=== PATIENT | female | born 1950 | race African-American/Black ===

== ENCOUNTER 2017-06-12 08:02 | Day surgery (SDC) | payer MEDICARE, MEDICAID ==
[2017-06-11 09:23] VITALS: BMI 28.3
[2017-06-12 11:10] VITALS: BP 142/72; TEMP 97.4
--- NOTE | 2017-06-12 11:52 | ULT ---
THYROID FINE NEEDLE ASPIRATION: Date: 06/12/17 COMPARISON: Thyroid ultrasound dated 04/28/17. HISTORY: Recent thyroid ultrasound demonstrated two nodules which based on size criteria were recommended for needle biopsy. FINDINGS: Informed consent was obtained prior to the procedure. Preprocedural imaging reidentifies the two nodules in question. This includes a nodule within the thy roid isthmus just to the right of midline measuring up to 1.6-1.7 cm. In addition, there is a nodule in the inferomedial left lobe of the thyroid gland measuring up to 2.2 cm. This thyroid biopsy was technically quite difficult secondary to the patient's inability to breath-ho ld and persistent rapid deep breathing during this study, which results in marked motion of the thyro id gland and associated nodules. Secondary to these technical limitations, the lesion within the left lobe could not be biopsied as it is also completely encircled by vessels, including carotid artery i nternal jugular vein and external jugular vein. Thus, only the lesion within the thyroid isthmus coul d be safely sampled. Skin overlying this lesion was prepped and draped in the normal sterile fashion and anesthetized with 1% buffered lidocaine. With direct sonographic guidance, four 25 gauge fine needle aspirates were obtained and given to the pathology personnel at the bedside. Postprocedural imaging demonstrates no postprocedural hemorrhage. IMPRESSION: Markedly difficult thyroid biopsy technically secondary to location of nodules and persistent patient swallowing and breathing. The left nodule was not biopsied secondary to these limitations and adjace nt vasculature. The thyroid isthmus nodule was sampled. CODE T. POS: [facility]
== END 2017-06-12 11:00 | disposition home or self-care (01) ==
LOC: ULT 08:02
PROVIDERS: ATTEND Otolaryngology Plastic Surgery within the Head & Neck
DX: E05.10 Thyrotoxicosis with toxic single thyroid nodule without thyrotoxic crisis or storm (principal); J45.909 Unspecified asthma, uncomplicated; M19.90 Unspecified osteoarthritis, unspecified site; F17.210 Nicotine dependence, cigarettes, uncomplicated; Z79.899 Other long term (current) drug therapy; Z96.643 Presence of artificial hip joint, bilateral
CPT/HCPCS: 10022; 76942; 88173

== ENCOUNTER 2024-03-18 05:08 | Inpatient (IN) | payer OTHER, MEDICAID ==
[2024-03-18] MEDS ORDERED: methylPREDNISolone Sod Succ/PF 125 MG/2 ML VIAL ONE (05:20)
[2024-03-18] MEDS ORDERED: Ipratropium/Albuterol 3 ML NEB ONE ×2 (05:20→05:50)
[2024-03-18 05:43] LABS: #Basophils 0.03 10x3/uL (0.0-0.2); %Basophils 0.5 % (0.0-1.0); %Eosinophils 3.4 % (0.0-10.0); %Lymphocytes 41.8 % (21.0-51.0); %Monocytes 10.8 % (0.0-10.0); %Neutrophils 43.3 % (42.0-75.0); Hematocrit 37.9 % (36.0-47.0); Mean Corpuscular HGB CONC 31.7 g/dL (32.0-36.0); Mean Corpuscular Hemoglobin 27.1 pg (27.0-31.0); Mean Corpuscular Volume 85.6 fL (78.0-98.0); Mean Platelet Volume 9.1 fL (7.4-10.4); Platelet Count 261 10x3/uL (130-400); RBC Distribution Width 13.1 % (11.5-14.5); Red Blood Cell (RBC) Count 4.43 mill/uL (4.20-5.40)
[2024-03-18] MEDS ORDERED: Magnesium 2 GM/50 ML BAG (IN WATER) ONE (05:50)
[2024-03-18 06:05] LABS: Troponin I Less than 0.010 ng/mL (< 0.028)
[2024-03-18 06:29] LABS: ALT (SGPT) 7 U/L (8-55); AST (SGOT) 15 U/L (5-34); Albumin 3.2 g/dL (3.4-4.8); Alkaline Phosphatase 87 U/L (40-110); Anion Gap 15 mmol/L (10-20); BUN (Urea Nitrogen) 15 mg/dL (9.8-20.1); Bilirubin, Total 0.3 mg/dL (0.2-1.2); Calc. Creatinine Clearance 0 mL/min (70-130); Calcium 9.1 mg/dL (7.8-10.44); Carbon Dioxide 23 mmol/L (23-31); Chloride 109 mmol/L (98-107); Estimated GFR 75; Globulin 3.6 g/dL (2.4-3.5); Glucose 96 mg/dL (83-110); Potassium 3.1 mmol/L (3.5-5.1); Protein, Total 6.8 g/dL (5.8-8.1); Sodium 144 mmol/L (136-145)
[2024-03-18] MEDS ORDERED: Ondansetron PF 4 MG/2 ML Vial IVP PRN (09:32)
[2024-03-18] MEDS ORDERED: Ondansetron ODT 4 MG TAB PO PRN (09:32)
[2024-03-18] MEDS ORDERED: hydrALAZINE 20 MG/ML VIAL SLOW IVP PRN (09:32)
[2024-03-18 10:02] VITALS: BMI 28.0
[2024-03-18] MEDS: Famotidine 20 MG TAB PO SCH ×2 (10:26→21:45)
[2024-03-18] MEDS: cefTRIAXone\\ROCEPHIN 1 GM in Sodium Chloride 0.9% 100 ML IVPB SCH (10:27)
[2024-03-18] MEDS: Ipratropium/Albuterol 3 ML NEB NEB SCH (11:11)
[2024-03-18] MEDS: methylPREDNISolone Sod Succ 40 MG VIAL IVP SCH (12:23)
[2024-03-18] MEDS: FLU (Fluad Triv) TS24-25 (65UP)/MF59C/PF 45 MCG/0.5 ML Syringe IM ONE (17:55)
[2024-03-18] MEDS: Benzonatate 100 MG CAP PO PRN (21:44)
[2024-03-18] MEDS: Acetaminophen 500 MG TAB PO PRN (21:45)
[2024-03-19 04:07] LABS: #Basophils Less than 0.03 10x3/uL (0.0-0.2); #Eosinophils Less than 0.03 10x3/uL (0.0-0.7); %Lymphocytes 12.2 % (21.0-51.0); %Monocytes 3.4 % (0.0-10.0); %Neutrophils 84.2 % (42.0-75.0); Hematocrit 35.6 % (36.0-47.0); Hemoglobin 11.2 g/dL (12.0-16.0); Mean Corpuscular HGB CONC 31.5 g/dL (32.0-36.0); Mean Corpuscular Hemoglobin 26.9 pg (27.0-31.0); Mean Corpuscular Volume 85.6 fL (78.0-98.0); Mean Platelet Volume 9.4 fL (7.4-10.4); Platelet Count 267 10x3/uL (130-400); RBC Distribution Width 13.3 % (11.5-14.5); Red Blood Cell (RBC) Count 4.16 mill/uL (4.20-5.40)
[2024-03-19 04:38] LABS: ALT (SGPT) 8 U/L (8-55); AST (SGOT) 14 U/L (5-34); Albumin 3.1 g/dL (3.4-4.8); Alkaline Phosphatase 82 U/L (40-110); Anion Gap 12 mmol/L (10-20); BUN (Urea Nitrogen) 21 mg/dL (9.8-20.1); Bilirubin, Total 0.3 mg/dL (0.2-1.2); Calc. Creatinine Clearance 60 mL/min (70-130); Calcium 9.1 mg/dL (7.8-10.44); Carbon Dioxide 27 mmol/L (23-31); Chloride 105 mmol/L (98-107); Estimated GFR 72; Globulin 3.6 g/dL (2.4-3.5); Glucose 133 mg/dL (83-110); Potassium 3.4 mmol/L (3.5-5.1); Protein, Total 6.7 g/dL (5.8-8.1); Sodium 141 mmol/L (136-145)
[2024-03-20 05:00] VITALS: TEMP 98.2
[2024-03-20 08:07] VITALS: BP 156/85
[2024-03-20 08:32] LABS: Anion Gap 14 mmol/L (10-20); BUN (Urea Nitrogen) 25 mg/dL (9.8-20.1); Calc. Creatinine Clearance 60 mL/min (70-130); Calcium 9.4 mg/dL (7.8-10.44); Carbon Dioxide 22 mmol/L (23-31); Chloride 111 mmol/L (98-107); Estimated GFR 72; Glucose 120 mg/dL (83-110); Potassium 4.5 mmol/L (3.5-5.1); Sodium 142 mmol/L (136-145)
[2024-03-20] MEDS: Guaifenesin DM 100-10/5 ML UDCUP PO PRN (12:35)
== END 2024-03-20 15:17 | disposition home or self-care (01) | DRG 189 ==
LOC: ERS 05:08 → 2NO 09:27 → MSONC 17:51
PROVIDERS: ADMIT Family Medicine; ATTEND Internal Medicine
DX: J96.21 Acute and chronic respiratory failure with hypoxia (principal); J44.1 Chronic obstructive pulmonary disease with (acute) exacerbation; E03.9 Hypothyroidism, unspecified; Z96.643 Presence of artificial hip joint, bilateral; E87.6 Hypokalemia; Z82.49 Family history of ischemic heart disease and other diseases of the circulatory system
CPT/HCPCS: 36415; 71045; 80048; 80053; 83880; 84484; 85025; 93005; 94640; 96374; 96375; J0696; J2919; J3475; J7620